=== PATIENT | female | born 1935 | race Hispanic/Latino ===

== ENCOUNTER 2018-08-08 11:05 | Inpatient (IN) | payer MEDICARE ==
--- NOTE | 2018-08-08 12:14 | Emergency Department Report ---
ED Dizziness HPI - General Chief Complaint: Dizziness Stated Complaint: DIZZINESS Time Seen by Provider: 08/08/18 12:01 Source: patient, EMS Mode of arrival: Stretcher Limitations: No Limitations - History of Present Illness Initial Comments: Patient is a 82 years old female history of hypertension and congestive heart failure. Patient presented to the ER for evaluation of 2 episodes of dizziness , palpitation and profuse sweating associated with shortness of breath. Patient stated that these happened twice. Patient denied any chest pain during this episode. She also denied any fever or chills. Patient denied any focal weakness numbness or tingling sensation. No bowel or bladder incontinence. MD Complaint: dizziness, lightheadedness -: Sudden, This morning Timing: sudden onset Description: lightheadedness, off-balance Severity: moderate - Related Data Allergies Allergy/AdvReac Type Severity Reaction Status Date / Time No Known Allergies Allergy Unverified 08/08/18 11:47 ED Review of Systems ROS: Stated complaint: DIZZINESS Other details as noted in HPI Comment: All other systems reviewed and negative Constitutional: denies: chills, fever Respiratory: cough, shortness of breath, SOB with exertion, SOB at rest. denies : orthopnea, wheezing Cardiovascular: palpitations. denies: chest pain, dyspnea on exertion Gastrointestinal: denies: abdominal pain, nausea, vomiting, diarrhea, constipation, hematemesis, melena, hematochezia Genitourinary: denies: urgency, frequency, hematuria, abnormal menses Neurological: vertigo. denies: headache, weakness, numbness, paresthesias, confusion ED Past Medical Hx - Past Medical History Hx Hypertension: Yes Hx Congestive Heart Failure: Yes Hx of Cancer: Yes (skin) Hx Arthritis: Yes - Surgical History Additional Surgical History: hysterectomy, eye - Social History Smoking Status: Never Smoker Substance Use Type: None ED Physical Exam - General Limitations: No Limitations General appearance: alert, in no apparent distress - Head Head exam: Present: atraumatic, normocephalic, normal inspection - Eye Eye exam: Present: normal appearance - ENT ENT exam: Present: normal exam, normal orophraynx, mucous membranes moist - Neck Neck exam: Present: normal inspection, full ROM. Absent: tenderness, meningismus, lymphadenopathy, thyromegaly - Respiratory Respiratory exam: Present: normal lung sounds bilaterally. Absent: respiratory distress, chest wall tenderness - Cardiovascular Cardiovascular Exam: Present: regular rate, normal rhythm, normal heart sounds - GI/Abdominal GI/Abdominal exam: Present: soft, normal bowel sounds. Absent: distended, tenderness, guarding, rebound, rigid, organomegaly, mass, bruit, pulsatile mass , hernia - Extremities Exam Extremities exam: Present: normal inspection, full ROM, normal capillary refill , pedal edema - Back Exam Back exam: Present: normal inspection, full ROM. Absent: tenderness, CVA tenderness (R), CVA tenderness (L), muscle spasm, paraspinal tenderness, vertebral tenderness - Neurological Exam Neurological exam: Present: alert, oriented X3, CN II-XII intact, normal gait, reflexes normal - Skin Skin exam: Present: warm, intact, normal color ED Course Vital Signs 08/08/18 08/08/18 08/08/18 11:42 11:55 12:00 Temperature 98.2 F Pulse Rate 60 62 63 Respiratory 18 12 17 Rate Blood Pressure 145/107 O2 Sat by Pulse 97 91 Oximetry 08/08/18 08/08/18 08/08/18 12:16 12:25 12:30 Temperature Pulse Rate 56 L 55 L Respiratory 24 20 20 Rate Blood Pressure 150/70 143/72 O2 Sat by Pulse 92 95 92 Oximetry 08/08/18 08/08/18 08/08/18 12:46 13:00 13:22 Temperature Pulse Rate 54 L 55 L 54 L Respiratory 23 21 15 Rate Blood Pressure 156/55 156/57 133/67 O2 Sat by Pulse 92 91 92 Oximetry 08/08/18 08/08/18 08/08/18 13:30 13:45 14:00 Temperature Pulse Rate 52 L 54 L 54 L Respiratory 24 23 23 Rate Blood Pressure 153/57 153/67 153/67 O2 Sat by Pulse 92 90 92 Oximetry ED Medical Decision Making - Lab Data Result diagrams: 08/08/18 12:02 08/08/18 12:02 - EKG Data -: EKG Interpreted by Hi EKG shows normal: sinus rhythm Rate: bradycardia - EKG Data Interpretation: no acute changes - Radiology Data Radiology results: report reviewed Referring Physician: BORA MCKEON Patient Name: MAN SANCHES Date of : 1935 Sex: Female Report Date: 2018-08-08 Report Status: Finalized Findings [facility] [address] [place] [address] XRay Report Signed Patient: MAN SANCHES I MR#: [id number] : 1935 Acct:[id number] Age/Sex: 82 / F ADM Date: 08/08/18 Loc: ED Attending Dr: Ordering Physician: BROA MCKEON Date of Service: 08/08/18 Procedure(s): XR chest 1V ap Accession Number(s): [id number] cc: BORA MCKEON Fluoro Time In Minutes: AP CHEST: HISTORY: chest pain AP view of the chest demonstrates a normal mediastinal and cardiac contour with clear lungs and normal bony and soft tissue structures. IMPRESSION: No acute cardiopulmonary process. Transcribed By: TTR Dictated By: BRENDA MYERS JR, MD Electronically Authenticated By: BRENDA MYERS JR, MD Signed Date/Time: 08/08/181351 DD/ 51 TD/TT: 08/08/181351 - Medical Decision Making I discussed the patient is Dr. Montoya, he agreed to admit the patient to medical service. Critical care attestation.: If time is entered above; I have spent that time in minutes in the direct care of this critically ill patient, excluding procedure time. ED Disposition Clinical Impression: Palpitation, Shortness of breath, Dizziness Disposition: OP ADMIT IP TO THIS HOSP Is pt being admited?: Yes Condition: Stable Referrals: PRIMARY CARE, [Primary Care Provider] - 3-5 Days
[2018-08-08 12:27] LABS: Basophils # (Auto) 0.1 K/mm3 (0.0-0.1); Basophils % (Auto) 1.8 % (0.0-1.8); Eosinophils # (Auto) 0.1 K/mm3 (0.0-0.4); Eosinophils % (Auto) 1.3 % (0.0-4.3); Hematocrit 42.7 % (30.3-42.9); Hemoglobin 14.4 gm/dl (10.1-14.3); Lymphocytes # (Auto) 1.7 K/mm3 (1.2-5.4); Lymphocytes % (Auto) 25.7 % (13.4-35.0); Mean Corpuscular HGB Conc 34 % (30-34); Mean Corpuscular Hemoglobin 31 pg (28-32); Mean Corpuscular Volume 92 fl (79-97); Monocytes # (Auto) 0.3 K/mm3 (0.0-0.8); Monocytes % (Auto) 4.9 % (0.0-7.3); Platelet Count 209 K/mm3 (140-440); Red Blood Count 4.62 M/mm3 (3.65-5.03)
[2018-08-08 13:00] LABS: BUN/Creatinine Ratio 10; Blood Urea Nitrogen 9 mg/dL (7-17); Calcium 8.8 mg/dL (8.4-10.2); Hemolysis Index 13
[2018-08-08 13:44] LABS: Alanine Aminotransferase 9 units/L (7-56)
--- NOTE | 2018-08-08 13:53 | XRay Report ---
AP CHEST: HISTORY: chest pain AP view of the chest demonstrates a normal mediastinal and cardiac contour with clear lungs and normal bony and soft tissue structures. IMPRESSION: No acute cardiopulmonary process.
[2018-08-08 13:55] LABS: Bilirubin,Direct < 0.2 mg/dL (0-0.2)
[2018-08-08 13:57] LABS: Partial Thromboplastin Time 31.5 Sec. (24.2-36.6)
--- NOTE | 2018-08-08 16:45 | Cat Scan Report ---
FINAL REPORT EXAM: CT HEAD/BRAIN WO CON HISTORY: dizziness COMPARISON: None. TECHNIQUE: Multiple contiguous axial images were obtained from the skullbase the vertex without administration of IV contrast. FINDINGS: There is age related cerebral cortical atrophy. There is no parenchymal hemorrhage or extra-axial fluid collection. There is no mass or mass effect. There is no acute territorial infarct. There are scattered areas of decreased attenuation in the subcortical and periventricular white matter, likely due to chronic microvascular ischemic disease. There is no skull fracture. The paranasal sinuses and mastoid air cells are clear. The bilateral orbits are intact. IMPRESSION: No acute intracranial abnormality. Chronic microvascular ischemic changes in the subcortical and periventricular white matter.
[2018-08-08] MEDS ORDERED: NORCO 5/325 PO PRN (20:55)
[2018-08-08] MEDS: VALIUM PO SCH (22:06)
--- NOTE | 2018-08-09 00:52 | History and Physical Report ---
History of Present Illness Date of examination: 08/08/18 Date of admission: 08/08/18 15:14 Chief complaint: CC increasing SOB for few days History of present illness: History of Present Illness: 82 years old female with history of hypertension and congestive heart failure presented to the ER for evaluation of 2 episodes of dizziness, palpitation and profuse sweating associated with shortness of breath. Patient stated that these happened twice. Patient denied any chest pain during this episode. She also denied any fever or chills. Patient denied any focal weakness numbness or tingling sensation. No bowel or bladder incontinence. Past Medical History Hx Hypertension: Yes Hx Congestive Heart Failure: Yes Hx of Cancer: Yes (skin) Hx Arthritis: Yes Surgical History Additional Surgical History: hysterectomy, eye Social History Smoking Status: Never Smoker Substance Use Type: None [place] History Htn Review of Systems ROS: Stated complaint: DIZZINESS Other details as noted in HPI Comment: All other systems reviewed and negative Constitutional: denies: chills, fever Respiratory: cough, shortness of breath, SOB with exertion, SOB at rest. denies : orthopnea, wheezing Cardiovascular: palpitations. denies: chest pain, dyspnea on exertion Gastrointestinal: denies: abdominal pain, nausea, vomiting, diarrhea, constipation, hematemesis, melena, hematochezia Genitourinary: denies: urgency, frequency, hematuria, abnormal menses Neurological: vertigo. denies: headache, weakness, numbness, paresthesias, confusion 14 point review of systems otherwise negative Medications and Allergies Allergies Allergy/AdvReac Type Severity Reaction Status Date / Time No Known Allergies Allergy Unverified 08/08/18 11:47 Home Medications Medication Instructions Recorded Confirmed Last Taken Type Alendronate Sodium [Fosamax] 70 mg PO QWEEK 08/08/18 08/08/18 Unknown History AtorvaSTATin [Lipitor] 20 mg PO QHS 08/08/18 08/08/18 Unknown History Carvedilol [Coreg] 6.25 mg PO BID 08/08/18 08/08/18 Unknown History Escitalopram [Lexapro] 10 mg PO DAILY 08/08/18 08/08/18 Unknown History Lisinopril [Zestril TAB] 40 mg PO QDAY 08/08/18 08/08/18 Unknown History Ranitidine HCl [Zantac 150 MG TAB] 150 mg PO BID 08/08/18 08/08/18 Unknown History diazePAM TAB [Valium] 5 mg PO QID PRN 08/08/18 08/08/18 Unknown History Active Meds: Active Medications Acetaminophen/Hydrocodone Bitart ([place] 5/325) 1 each PO BID PRN PRN Reason: Pain, Moderate (4-6) Last Admin: 08/08/18 22:06 Dose: 1 each Diazepam (Valium) 5 mg PO QHS [facility]ARD Last Admin: 08/08/18 22:06 Dose: 5 mg Exam - Constitutional Vitals: Temp Pulse Resp BP Pulse Ox 98.2 F 55 L 20 144/76 95 08/08/18 23:44 08/08/18 23:44 08/08/18 23:44 08/08/18 23:44 08/08/18 23:44 General appearance: Present: mild distress, well-nourished - EENT Eyes: Present: PERRL ENT: hearing intact, clear oral mucosa - Neck Neck: Present: supple, normal ROM - Respiratory Respiratory effort: normal Respiratory: bilateral: CTA, rales (scattered rales bilaterally) - Cardiovascular Heart rate: 78 Rhythm: regular Heart Sounds: Present: S1 & S2. Absent: rub, click - Extremities Extremities: no ischemia, pulses intact, pulses symmetrical, No edema Extremity abnormal: edema Peripheral Pulses: within normal limits - Abdominal General gastrointestinal: Present: soft, non-tender, non-distended, normal bowel sounds Female genitourinary: Present: normal - Integumentary Integumentary: Present: clear, warm, dry - Musculoskeletal Musculoskeletal: gait normal, strength equal bilaterally - Psychiatric Psychiatric: appropriate mood/affect, intact judgment & insight - Neurologic Neurologic: CNII-XII intact, moves all extremities - Allied Health Allied health notes reviewed: nursing, case management Results - Labs CBC & Chem 7: 08/08/18 12:02 08/09/18 01:25 Labs: Laboratory Last Values WBC 6.5 K/mm3 (4.5-11.0) 08/08/18 12:02 RBC 4.62 M/mm3 (3.65-5.03) 08/08/18 12:02 Hgb 14.4 gm/dl (10.1-14.3) H 08/08/18 12:02 Hct 42.7 % (30.3-42.9) 08/08/18 12:02 MCV 92 fl (79-97) 08/08/18 12:02 MCH 31 pg (28-32) 08/08/18 12:02 MCHC 34 % (30-34) 08/08/18 12:02 RDW 13.0 % (13.2-15.2) L 08/08/18 12:02 Plt Count 209 K/mm3 (140-440) 08/08/18 12:02 Lymph % (Auto) 25.7 % (13.4-35.0) 08/08/18 12:02 [place] % (Auto) 4.9 % (0.0-7.3) 08/08/18 12:02 Eos % (Auto) 1.3 % (0.0-4.3) 08/08/18 12:02 Baso % (Auto) 1.8 % (0.0-1.8) 08/08/18 12:02 Lymph # 1.7 K/mm3 (1.2-5.4) 08/08/18 12:02 [place] # 0.3 K/mm3 (0.0-0.8) 08/08/18 12:02 Eos # 0.1 K/mm3 (0.0-0.4) 08/08/18 12:02 Baso # 0.1 K/mm3 (0.0-0.1) 08/08/18 12:02 Seg Neutrophils % 66.3 % (40.0-70.0) 08/08/18 12:02 Seg Neutrophils # 4.3 K/mm3 (1.8-7.7) 08/08/18 12:02 PT 13.7 Sec. (12.2-14.9) 08/08/18 13:11 INR 1.00 (0.87-1.13) 08/08/18 13:11 APTT 31.5 Sec. (24.2-36.6) 08/08/18 13:11 D-Dimer 250.21 ng/mlDDU (0-234) H 08/08/18 13:11 Sodium 139 mmol/L (137-145) 08/08/18 12:02 Potassium 4.3 mmol/L (3.6-5.0) 08/08/18 12:02 Chloride 102.3 mmol/L (98-107) 08/08/18 12:02 Carbon Dioxide 22 mmol/L (22-30) 08/08/18 12:02 Anion Gap 19 mmol/L 08/08/18 12:02 BUN 9 mg/dL (7-17) 08/08/18 12:02 Creatinine 0.9 mg/dL (0.7-1.2) 08/08/18 12:02 Estimated GFR 60 ml/min 08/08/18 12:02 BUN/Creatinine Ratio 10 % 08/08/18 12:02 Glucose 115 mg/dL (65-100) H 08/08/18 12:02 Calcium 8.8 mg/dL (8.4-10.2) 08/08/18 12:02 Total Bilirubin 0.50 mg/dL (0.1-1.2) 08/08/18 13:11 Direct Bilirubin < 0.2 mg/dL (0-0.2) 08/08/18 13:11 AST 16 units/L (5-40) 08/08/18 13:11 ALT 9 units/L (7-56) 08/08/18 13:11 Alkaline Phosphatase 111 units/L (35-129) 08/08/18 13:11 Troponin T < 0.010 ng/mL (0.00-0.029) 08/08/18 12:02 NT-Pro-B Natriuret Pep 853.3 pg/mL (0-900) 08/08/18 13:11 Total Protein 6.6 g/dL (6.3-8.2) 08/08/18 13:11 Albumin 4.0 g/dL (3.9-5) 08/08/18 13:11 Albumin/Globulin Ratio 1.5 % 08/08/18 13:11 Short CBC 08/08/18 Range/Units 12:02 WBC 6.5 (4.5-11.0) K/mm3 Hgb 14.4 H (10.1-14.3) gm/dl Hct 42.7 (30.3-42.9) % Plt Count 209 (140-440) K/mm3 BMP 08/08/18 08/09/18 12:02 01:25 Sodium 139 138 Potassium 4.3 3.8 Chloride 102.3 101.7 Carbon Dioxide 22 28 BUN 9 9 Creatinine 0.9 0.8 Glucose 115 H 88 Calcium 8.8 8.5 Cardiac Enzymes 08/08/18 08/09/18 Range/Units 12:02 05:18 Troponin T < 0.010 < 0.010 (0.00-0.029) ng/mL Liver Function 08/08/18 Range/Units 13:11 Total Bilirubin 0.50 (0.1-1.2) mg/dL Direct Bilirubin < 0.2 (0-0.2) mg/dL AST 16 (5-40) units/L ALT 9 (7-56) units/L Alkaline Phosphatase 111 (35-129) units/L Albumin 4.0 (3.9-5) g/dL - Imaging and Cardiology EKG: report reviewed Chest x-ray: report reviewed Imaging and Cardiology: CT Head IMPRESSION: No acute intracranial abnormality. Chronic microvascular ischemic changes in the subcortical and periventricular white matter. CXR: IMPRESSION: No acute cardiopulmonary process. Assessment and Plan Advance Directives: Yes (full code) VTE prophylaxis?: Chemical Plan of care discussed with patient/family: Yes - Patient Problems (1) Acute exacerbation of CHF (congestive heart failure) Current Visit: Yes Status: Acute Qualifiers: Heart failure type: combined systolic and diastolic Qualified Code(s): I50.43 - Acute on chronic combined systolic (congestive) and diastolic ( congestive) heart failure Plan to address problem: Patient to be continued on Lasix IV 40 mg twice a day Echocardiogram (2) HTN (hypertension) Current Visit: Yes Status: Chronic Qualifiers: Hypertension type: essential hypertension Qualified Code(s): I10 - Essential (primary) hypertension Plan to address problem: Not on any antihypertensives at this point (3) Osteoarthritis Current Visit: Yes Status: Chronic Qualifiers: Osteoarthritis location: knee Plan to address problem: Symptomatic treatment (4) DVT prophylaxis Current Visit: Yes Status: Acute Plan to address problem: Lovenox 40 mg subcutaneous daily Prophylaxis initiated
[2018-08-09] MEDS ORDERED: VALIUM PO PRN (00:54)
[2018-08-09] MEDS ORDERED: ZOFRAN IV PRN (00:56)
[2018-08-09] MEDS ORDERED: SODIUM CHLORIDE FLUSH SYRINGE 10 ML IV PRN (00:56)
[2018-08-09] MEDS ORDERED: MORPHINE IV PRN (00:56)
[2018-08-09] MEDS ORDERED: TYLENOL PO PRN (00:56)
[2018-08-09 02:15] LABS: BUN/Creatinine Ratio 11; Blood Urea Nitrogen 9 mg/dL (7-17); Calcium 8.5 mg/dL (8.4-10.2); Hemolysis Index 2
[2018-08-09] MEDS: COREG PO SCH ×3 (02:18→22:32)
[2018-08-09] MEDS: K-DUR PO SCH ×3 (02:19→22:32)
[2018-08-09] MEDS: LASIX IV SCH ×2 (05:49→18:36)
[2018-08-09] MEDS ORDERED: LEXISCAN IV ONE ×2 (11:43)
--- NOTE | 2018-08-09 12:01 | Progress Note ---
Assessment and Plan - Patient Problems (1) Acute exacerbation of CHF (congestive heart failure) Current Visit: Yes Status: Acute Qualifiers: Heart failure type: combined systolic and diastolic Qualified Code(s): I50.43 - Acute on chronic combined systolic (congestive) and diastolic ( congestive) heart failure Plan to address problem: Patient to be continued on Lasix IV 40 mg twice a day Echocardiogram (2) HTN (hypertension) Current Visit: Yes Status: Chronic Qualifiers: Hypertension type: essential hypertension Qualified Code(s): I10 - Essential (primary) hypertension Plan to address problem: Not on any antihypertensives at this point (3) Osteoarthritis Current Visit: Yes Status: Chronic Qualifiers: Osteoarthritis location: knee Plan to address problem: Symptomatic treatment (4) DVT prophylaxis Current Visit: Yes Status: Acute Plan to address problem: Lovenox 40 mg subcutaneous daily Prophylaxis initiated Subjective Date of service: 08/09/18 Principal diagnosis: CHF exacerbation Interval history: Some symptomatic improvement present Objective - Constitutional Vitals: Vital Signs - 12hr 08/09/18 08/09/18 02:35 05:25 Temperature 98.0 F Pulse Rate 53 L 62 Respiratory 18 Rate Blood Pressure 116/52 O2 Sat by Pulse 98 Oximetry General appearance: Present: no acute distress, well-nourished - EENT Eyes: PERRL, EOM intact ENT: hearing intact, clear oral mucosa Ears: bilateral: normal - Neck Neck: supple, normal ROM - Respiratory Respiratory effort: normal Respiratory: bilateral: CTA, rales (scattered rales) - Breasts Breasts: normal - Cardiovascular Heart rate: 86 Rhythm: regular Heart Sounds: Present: S1 & S2. Absent: gallop, rub Extremities: pulses intact, No edema, normal color, Full ROM - Gastrointestinal General gastrointestinal: Present: soft, non-tender, non-distended, normal bowel sounds - Genitourinary Female genitourinary: normal - Integumentary Integumentary: clear, warm, dry - Musculoskeletal Musculoskeletal: 1, strength equal bilaterally - Neurologic Neurologic: moves all extremities - Psychiatric Psychiatric: memory intact, appropriate mood/affect, intact judgment & insight - Labs CBC & Chem 7: 08/08/18 12:02 08/09/18 01:25 Labs: Abnormal lab results 08/08/18 08/08/18 08/08/18 Range/Units 12:02 12:02 13:11 Hgb 14.4 H (10.1-14.3) gm/dl RDW 13.0 L (13.2-15.2) % D-Dimer 250.21 H (0-234) ng/mlDDU Glucose 115 H (65-100) mg/dL
[2018-08-09] MEDS: ZESTRIL PO SCH (13:42)
[2018-08-09] MEDS: PEPCID PO SCH ×2 (13:43→22:31)
[2018-08-09] MEDS: VALIUM PO SCH ×2 (13:43→22:31)
[2018-08-09] MEDS: LEXAPRO PO SCH (13:43)
[2018-08-09] MEDS: SODIUM CHLORIDE FLUSH SYRINGE 10 ML IV SCH ×2 (13:44→22:32)
[2018-08-09] MEDS: NORCO 5/325 PO PRN (14:00)
--- NOTE | 2018-08-10 04:43 | Treadmill Report ---
THALLIUM STRESS TEST LEFT VENTRICLE: Left ventricular chamber size is within normal spread. Perfusion study demonstrates homogeneous uptake of the tracer in all segments, no significant perfusion defects identified. Gated analysis demonstrates normal left ventricular systolic function, ejection fraction 64%. CONCLUSION: Normal myocardial perfusion study. JOB# [id number] CA/NTS
[2018-08-10 05:30] LABS: Basophils # (Auto) 0.1 K/mm3 (0.0-0.1); Basophils % (Auto) 0.9 % (0.0-1.8); Eosinophils # (Auto) 0.1 K/mm3 (0.0-0.4); Eosinophils % (Auto) 0.8 % (0.0-4.3); Hematocrit 42.6 % (30.3-42.9); Hemoglobin 14.5 gm/dl (10.1-14.3); Lymphocytes # (Auto) 2.5 K/mm3 (1.2-5.4); Lymphocytes % (Auto) 26.4 % (13.4-35.0); Mean Corpuscular HGB Conc 34 % (30-34); Mean Corpuscular Hemoglobin 32 pg (28-32); Mean Corpuscular Volume 92 fl (79-97); Monocytes # (Auto) 0.7 K/mm3 (0.0-0.8); Monocytes % (Auto) 7.1 % (0.0-7.3); Platelet Count 220 K/mm3 (140-440); Red Blood Count 4.62 M/mm3 (3.65-5.03); Red Cell Distribution Width 12.8 % (13.2-15.2)
[2018-08-10 05:52] LABS: Calcium 8.8 mg/dL (8.4-10.2)
[2018-08-10] MEDS: LASIX IV SCH (06:10)
[2018-08-10] MEDS: K-DUR PO SCH (09:09)
[2018-08-10] MEDS: PEPCID PO SCH (09:09)
[2018-08-10] MEDS: LEXAPRO PO SCH (09:09)
[2018-08-10] MEDS: COREG PO SCH (09:09)
[2018-08-10] MEDS: ZESTRIL PO SCH (09:09)
[2018-08-10] MEDS: NORCO 5/325 PO PRN (09:19)
[2018-08-10] MEDS: SODIUM CHLORIDE FLUSH SYRINGE 10 ML IV SCH (09:22)
--- NOTE | 2018-08-10 09:36 | Consultation ---
History of Present Illness Consult date: 08/10/18 Consult reason: congestive heart failure History of present illness: This is an 82 year old woman who reports a history of hypertension and arthritis. 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 Patient presented to this hospital with complaints of dizziness and palpitations. A cardiac consultation was requested for "CHF" evaluation. There were no reports of shortness of breath or chest pain. There is no lower extremity edema. A chest x-ray done on initial workup is negative. Further cardiac evaluation with an echocardiogram reveals a normal left ventricular systolic function with an ejection fraction 50-55%. She also had a normal myocardial perfusion thallium stress test this presentation. Today, patient reports she is feeling better. She denies palpitations and dizziness. There were no arrhythmias seen on telemetry monitoring. Her presenting ECG shows a sinus bradycardia, rate 56, with occasional PVCs. Medications and Allergies Allergies Allergy/AdvReac Type Severity Reaction Status Date / Time No Known Allergies Allergy Unverified 08/08/18 11:47 Home Medications Medication Instructions Recorded Confirmed Last Taken Type Alendronate Sodium [Fosamax] 70 mg PO QWEEK 08/08/18 08/08/18 Unknown History AtorvaSTATin [Lipitor] 20 mg PO QHS 08/08/18 08/08/18 Unknown History Carvedilol [Coreg] 6.25 mg PO BID 08/08/18 08/08/18 Unknown History Escitalopram [Lexapro] 10 mg PO DAILY 08/08/18 08/08/18 Unknown History Lisinopril [Zestril TAB] 40 mg PO QDAY 08/08/18 08/08/18 Unknown History Ranitidine HCl [Zantac 150 MG TAB] 150 mg PO BID 08/08/18 08/08/18 Unknown History diazePAM TAB [Valium] 5 mg PO QID PRN 08/08/18 08/08/18 Unknown History Active Meds: Active Medications Acetaminophen (Tylenol) 650 mg PO Q4H PRN PRN Reason: Pain MILD(1-3)/Fever >100.5/TOLBERT Acetaminophen/Hydrocodone Bitart ([place] 5/325) 2 each PO Q6H PRN PRN Reason: Pain, Moderate (4-6) Last Admin: 08/10/18 09:19 Dose: 2 each Atorvastatin Calcium (Lipitor) 20 mg PO QHS [facility] Last Admin: 08/09/18 22:31 Dose: 20 mg Carvedilol (Coreg) 6.25 mg PO BID [facility] Last Admin: 08/10/18 09:09 Dose: 6.25 mg Diazepam (Valium) 5 mg PO QHS [facility] Last Admin: 08/09/18 22:31 Dose: 5 mg Diazepam (Valium) 5 mg PO QID PRN PRN Reason: Anxiety Last Admin: 08/10/18 09:19 Dose: 5 mg Escitalopram Oxalate (Lexapro) 10 mg PO DAILY [facility] Last Admin: 08/10/18 09:09 Dose: 10 mg Famotidine (Pepcid) 20 mg PO BID [facility] Last Admin: 08/10/18 09:09 Dose: 20 mg Furosemide (Lasix) 40 mg IV 0600,1800 [facility] Last Admin: 08/10/18 06:10 Dose: 40 mg Lisinopril (Zestril) 40 mg PO QDAY [facility] Last Admin: 08/10/18 09:09 Dose: 40 mg Morphine Sulfate (Morphine) 2 mg IV Q4H PRN PRN Reason: Pain, Moderate (4-6) Ondansetron HCl (Zofran) 4 mg IV Q8H PRN PRN Reason: Nausea And Vomiting Potassium Chloride (K-Dur) 20 meq PO Q12HR [facility] Last Admin: 08/10/18 09:09 Dose: 20 meq Sodium Chloride (Sodium Chloride Flush Syringe 10 Ml) 10 ml IV BID [facility] Last Admin: 08/10/18 09:22 Dose: 10 ml Sodium Chloride (Sodium Chloride Flush Syringe 10 Ml) 10 ml IV PRN PRN PRN Reason: LINE FLUSH Physical Examination Vital Signs Temp Pulse Resp BP Pulse Ox 98.2 F 60 18 145/107 97 08/08/18 11:42 08/08/18 11:42 08/08/18 11:42 08/08/18 11:42 08/08/18 11:42 General appearance: no acute distress HEENT: Positive: PERRL Neck: Positive: trachea midline Cardiac: Positive: Reg Rate and Rhythm Lungs: Positive: Decreased Breath Sounds Neuro: Positive: Grossly Intact Extremities: Absent: edema Results 08/10/18 04:52 08/10/18 04:52 CBC 08/10/18 Range/Units 04:52 WBC 9.3 (4.5-11.0) K/mm3 RBC 4.62 (3.65-5.03) M/mm3 Hgb 14.5 H (10.1-14.3) gm/dl Hct 42.6 (30.3-42.9) % Plt Count 220 (140-440) K/mm3 Lymph # 2.5 (1.2-5.4) K/mm3 [place] # 0.7 (0.0-0.8) K/mm3 Eos # 0.1 (0.0-0.4) K/mm3 Baso # 0.1 (0.0-0.1) K/mm3 Comprehensive Metabolic Panel 08/10/18 Range/Units 04:52 Sodium 142 (137-145) mmol/L Potassium 4.5 (3.6-5.0) mmol/L Chloride 101.1 (98-107) mmol/L Carbon Dioxide 29 (22-30) mmol/L BUN 13 (7-17) mg/dL Creatinine 1.0 (0.7-1.2) mg/dL Glucose 101 H (65-100) mg/dL Calcium 8.8 (8.4-10.2) mg/dL Assessment and Plan Palpitations no arrhythmias seen on telemetry Hypertension Arthritis Echocardiogram reveals a normal left ventricular systolic function with an ejection fraction 50-55%. Normal myocardial perfusion thallium stress test this presentation. No further cardiac workup indicated.
--- NOTE | 2018-08-10 10:59 | Discharge Summary ---
Providers - Providers Date of Admission: 08/08/18 15:14 Date of discharge: 08/10/18 Attending physician: MARTHA QURESHI 08/09/18 12:01 Consult to Physician [CONS] Routine Comment: Consulting Provider: PRETTY KIMBLE Physician Instructions: Reason For Exam: CHF exacerbnation Primary care physician: [employer] Hospitalization Condition: Fair Disposition: DC-01 TO HOME OR SELFCARE Core Measure Documentation - Palliative Care Palliative Care/ Comfort Measures: Not Applicable - Core Measures Any of the following diagnoses?: heart failure - Heart Failure Discharge Requirements REGIS/ARB for LVSD if EF <40%: Yes Exam - Constitutional Vitals: Temp Pulse Resp BP Pulse Ox 98.4 F 66 16 101/60 92 08/10/18 07:48 08/10/18 07:48 08/10/18 07:48 08/10/18 07:48 08/10/18 07:48 Plan Activity: advance as tolerated Diet: low fat, low cholesterol, low salt Additional Instructions: 1.Follow up with PCP in 1 week. 2.Follow up with cardiology, Dr. Cortes in 1 week Follow up with: PRIMARY CARE, [Primary Care Provider] - 3-5 Days
[2018-08-10 12:52] VITALS: BP 100/62
== END 2018-08-10 17:30 | disposition home or self-care (01) | DRG 293 ==
LOC: ED 11:05 → 4A 15:14
PROVIDERS: ADMIT Internal Medicine; ATTEND Internal Medicine
DX: I11.0 Hypertensive heart disease with heart failure (principal); I50.43 Acute on chronic combined systolic (congestive) and diastolic (congestive) heart failure; M17.10 Unilateral primary osteoarthritis, unspecified knee; R00.1 Bradycardia, unspecified; Z85.828 Personal history of other malignant neoplasm of skin; Z90.710 Acquired absence of both cervix and uterus; Z79.899 Other long term (current) drug therapy
CPT/HCPCS: 36415; 70450; 71045; 78452; 80048; 80074; 83036; 83880; 84484; 85025; 85379; 85610; 85730; 93005; 93010; 93017; 93306; A9270-GY; A9502; J1940; J2405; J2785